=== PATIENT | female | born 1995 | race African-American/Black ===

== ENCOUNTER 2023-02-21 23:55 | Emergency (ER) | payer SELFPAY ==
[~2023-02-21] VITALS: Ht 177.8 cm; Wt 129.7 kg
[2023-02-22] MEDS ORDERED: SODIUM CHLORIDE 0.9% 1000ML 1,000 ML IV ONE (00:30)
[2023-02-22] MEDS ORDERED: KETOROLAC TROMETHAMINE 30 MG/ML VIAL IV STA (00:39)
[2023-02-22] MEDS ORDERED: KETOROLAC TROMETHAMINE 30 MG/ML VIAL ONE (01:31)
[2023-02-22] MEDS ORDERED: SODIUM CHLORIDE 0.9% 1000ML 1,000 ML ONE (01:31)
[2023-02-22] MEDS ORDERED: DOCUSATE SODIU100 MG PO (02:36)
[2023-02-22 02:55] VITALS: BP 132/72; PULSE 90; RESP 18; TEMP 97.8; O2SAT 98
== END 2023-02-22 02:55 | disposition home or self-care (01) ==
LOC: FSED 02-22 00:01
DX: R10.11 Right upper quadrant pain (principal); D64.9 Anemia, unspecified; N20.0 Calculus of kidney
CPT/HCPCS: 74176; 80053; 80307; 81003; 81025; 85025; 99284; J1885; J7030

== ENCOUNTER 2024-07-12 12:40 | Emergency (ER) | payer SELFPAY ==
[~2024-07-12] VITALS: Ht 177.8 cm; Wt 161.5 kg
[~2024-07-12 12:40] MED LIST: DOCUSATE SODIU100 MG PO
[2024-07-12 13:15] VITALS: PULSE 73; RESP 18; TEMP 98.9; O2SAT 97
[2024-07-12] MEDS: TETANUS/DIPHTHERIA TOX ADULT 0.5 ML SYR IM ONE (13:54)
== END 2024-07-12 13:59 | disposition home or self-care (01) ==
LOC: FSED 13:23
DX: S60.571A Other superficial bite of hand of right hand, initial encounter (principal); W54.0XXA Bitten by dog, initial encounter; Y92.89 Other specified places as the place of occurrence of the external cause
CPT/HCPCS: 90714; 99283

== ENCOUNTER 2024-08-26 21:30 | Emergency (ER) | payer SELFPAY ==
[~2024-08-26] VITALS: Ht 177.8 cm; Wt 158.3 kg
[2024-08-26 21:40] VITALS: PULSE 93; RESP 18; TEMP 98.2
[2024-08-26] MEDS ORDERED: CYCLOBENZAPRINE5 MG PO (21:56)
[2024-08-26] MEDS: KETOROLAC TROMETHAMINE 30 MG/ML VIAL IM STA (22:10)
[2024-08-26 22:18] VITALS: BP 141/91; O2SAT 98
== END 2024-08-26 22:21 | disposition home or self-care (01) ==
LOC: FSED 21:56
DX: M54.41 Lumbago with sciatica, right side (principal); E66.9 Obesity, unspecified; F17.210 Nicotine dependence, cigarettes, uncomplicated
CPT/HCPCS: 99282; J1885